=== PATIENT | female | born 1960 | race Asian ===

== ENCOUNTER → 2023-05-14 13:48 | Outpatient (REF) | payer BC, SELFPAY | LOC: HWRAD 13:48 | PROVIDERS: ATTENDING PHYSICIAN Internal Medicine Nephrology; FAMILY PHYSICIAN Family Medicine | DX: R79.89 Other specified abnormal findings of blood chemistry (principal); L93.0 Discoid lupus erythematosus; M34.9 Systemic sclerosis, unspecified | CPT/HCPCS: 76770 ==

== ENCOUNTER → 2023-10-30 14:35 | Outpatient (REF) | payer BC, SELFPAY | LOC: RCS 14:35 | PROVIDERS: ATTENDING PHYSICIAN Internal Medicine Cardiovascular Disease; FAMILY PHYSICIAN Family Medicine | DX: I27.20 Pulmonary hypertension, unspecified (principal); I48.0 Paroxysmal atrial fibrillation; I47.20 Ventricular tachycardia, unspecified | CPT/HCPCS: 93017; 93306 ==

== ENCOUNTER → 2024-05-05 14:11 | Outpatient (REF) | payer BC, SELFPAY | LOC: RCS 14:11 | PROVIDERS: ATTENDING PHYSICIAN Internal Medicine Cardiovascular Disease | DX: R94.39 Abnormal result of other cardiovascular function study (principal); R00.2 Palpitations | CPT/HCPCS: 93017; 93350 ==

== ENCOUNTER 2024-12-23 11:45 | Day surgery (SDC) | payer BC, SELFPAY ==
[2024-12-07 11:23] VITALS: BMI 20.2
[2024-12-07 11:41] LABS: Hematocrit 31.7 % (37.0-47.0); Hemoglobin 10.4 g/dL (12.0-16.0); Mean Corp Hgb Conc. 32.8 g/dL (33.0-37.0); Mean Corpuscular Volume 93.0 fL (81.0-99.0); Nucleated Red Blood Cells % 0 %; Platelet Count 257 10^3/uL (130-400); Red Cell Dist. Width 12.8 % (11.5-14.5)
[2024-12-07 11:52] LABS: INR 1.19; PT 15.4 Sec (11.4-14.6)
[2024-12-07 12:14] LABS: ALT (SGPT) 21 U/L (0-35); AST (SGOT) 24 U/L (14-36); Albumin 4.3 g/dl (3.5-5.0); Alkaline Phosphatase 56 U/L (38-126); Blood Urea Nitrogen 30 mg/dl (7-17); Calcium 9.3 mg/dl (8.4-10.2); Carbon Dioxide 25 mmol/L (22-30); Chloride 108 mmol/L (98-107); Estimated Creatinine Clearance 35 ml/min; Glucose 97 mg/dl (70-99); Magnesium 1.3 mg/dl (1.6-2.3); Potassium 4.1 mmol/L (3.5-5.1); Sodium 141 mmol/L (135-145); Total Protein 7.8 g/dl (6.3-8.2); eGFR 42.01
[2024-12-23] VITALS (24 sets, daily range): BP systolic 120–156; BP diastolic 65–91
--- NOTE | 2024-12-23 11:46 | ITS.CL.ABL ---
Fermentation Scientist - Ablation
Ablation
Procedure Report:
ELECTROPHYSIOLOGIC STUDY AND POSSIBLE ABLATION
DATE: December 23, 2024
Primary Care Provider: Dr. Cole Mckeon
Primary television installer helper: Dr Jami Phelps
INDICATION:
Symptomatic Atrial Fibrillation.
Paroxysmal
HISTORY: See H and P.
Symptomatic AF, poorly controlled with attempted medical therapy
HAS-BLED:0
CHADSVASc: 0
PRESENTING RHYTHM: SR
HISTORY: See H and P.
Symptomatic AF, poorly controlled with attempted medical therapy.
PVI in October 2022 using cryo balloon ablation.
She has recurred with symptomatic atrial fibrillation and presents today for mapping and ablation.
She had pulmonary vein isolation 2022. She has been having palpitations and on Apple Watch she is having frequent recurrence of atrial fibrillation with symptoms of dizziness lasting 20 minutes to 1 hour. I reviewed her Apple watch today and strips
consistent with atrial fibrillation.
ANTICOAGULATION: Eliquis 5 mg twice daily which was initiated October 20, 2024 for recurrences of atrial fibrillation.
'TIME-OUT': called and confirmed.
SEDATION/ANESTHESIA: provided via the anesthesia department using general anesthesia.
PROCEDURE:
Ultrasound Guidance with real-time visualization of needle insertion and vessel patency performed by me for femoral venous Vascular Access.
Under real-time US guidance, the needle was advanced with negative pressure into the vein. The needle was seen entering the vessel lumen with a good return of dark red flow, the syringe was removed, non-pulsatile, dark red blood low was noted and
the wire was passed without difficulty, then the needle was removed. US confirmed the wire was in the vein, not going into an artery,
Images were taken and saved for the patient's permanent record. Imaging findings typical femoral venous anatomy. Direct visualization of needle puncture into the femoral vein was observed and recorded.
A decapolar CS catheter was placed within the CS for mapping and pacing.
The intracardiac ultrasound catheter was positioned in the RA for continuous intracardiac ultrasound imaging.
Heparin bolus and infusion to target ACT at 300 -350 seconds was administered. Transseptal puncture was performed. This entailed advancing a sheath with dilator into the superior vena cava and withdrawing both (monitoring intracardiac ultrasound,
fluoroscopy and tip pressure) with the tip oriented toward the atrial septum. The fossa ovalis was engaged (indicated by sudden displacement of the sheath tip as well as tenting of the fossa seen on intracardiac ultrasound).
Transseptal puncture was performed. Left atrial catheter position was confirmed by echocardiographic imaging, pressure monitoring (LA mean pressure 1mm Hg) and fluoroscopy. The sheath was advanced over the dilator and positioned in the left atrium.
The Sphere 9 multipolar mapping/ablation Sphere-9 catheter was positioned through the transseptal sheath for high density mapping.
Geometry and voltage mapping was performed using the Ch[employer] mapping system for three-dimensional electroanatomical mapping.
Catheter positioning was guided and confirmed using both I.C.E. and fluoroscopy.
High density electroanatomical three-dimensional mapping demonstrated four PVs: LSPV, LIPV, RSPV, RIPV.
Ablation strategy included PVI as well as mapping for extra PV contributors to atrial fibrillation which would also be targeted if present.
Mapping demonstrates reconnection of the left inferior pulmonary vein towards its inferior septal quadrant.
Ablation utilizing PFA via the sphere 9 catheter isolated the left inferior pulmonary vein
After accomplishing pulmonary venous isolation, mapping identified additional areas likely to be extra PV contributors to atrial fibrillation. These areas demonstrated patchy low voltage as well as complex fractionated electrograms. These areas can
be sites for the formation of rotors which can drive and maintain atrial fibrillation. These areas are known to be significant contributors to initiation and perpetuation of atrial fibrillation.
Additional energy applications/additional ablation sets targeted extra PV contributors to atrial fibrillation.
Targets for additional PFA ablation included:
LA posterior wall targeted with pulsed electric field energy isolating the posterior wall of the left atrium
After ablation of the posterior wall, additional targets were addressed:
LA inferior floor
These areas were ablated using pulsed electric field energy eliminating the extra PV contributors to atrial fibrillation.
Post ablation mapping finds entrance and exit block at each of the pulmonary veins, the LA posterior wall and at the additional line at inferior/floor of the LA rendering the sites no longer able to contribute to atrial fibrillation.
Programmed electrostimulation including burst atrial pacing as well the delivery of decremental extrastimuli down to atrial effective refractory period and no sustained arrhythmias could be induced.
I.C.E. :
Pre-Ablation Post-Ablation
LVEF: 55 % 55 %
WMA: none none
Pericardial effusion: trace post trace post
LA Pressure (mmHg) 1 2
COMPLICATIONS:
none
SUMMARY:
- Mapping and ablation to isolate the PVs resulting in electrical isolation of the pulmonary veins
- Additional AF ablation sets X 2 after PVI (LA posterior wall, Inf/floor of the LA posterior wall) resulting in elimination of the targeted extra PV contributors to atrial fibrillation (Post wall, Inf LA floor)
- 3-D Electroanatomical Mapping
- Intracardiac Ultrasound
- Ultrasound guidance for vascular access
Post ablation, I discussed today's findings and results with the patient's , Pranav.
RECOMMENDATIONS:
- Observe in monitored bed.
- Maintain oral anticoagulation, apixaban 5 mg twice daily.
CHADSVASc = 0
Stop anticoagulation 2 months from today and at that time initiate aspirin 81 mg daily
- Continue cardiovascular care with Dr Jami Phelps which is scheduled for April 05, 2025
Copy to:
Primary Care Provider: Dr. Cole Mckeon
Primary television installer helper: Dr Jami Phelps
[2024-12-23 12:42] LABS: Magnesium 1.7 mg/dl (1.6-2.3)
[2024-12-23 16:03] LABS: ACT-LR - POC 316 Seconds (116-155)
[2024-12-23] MEDS: ULTRAM 50 MG PO (17:28)
[2024-12-23] MEDS: TYLENOL 650 MG PO (18:22)
[2024-12-23] MEDS: LIPITOR 10 MG PO (18:23)
--- NOTE | 2024-12-23 18:50 | PTCARENOTE ---
1750-Received pt from laborer electroplating.Oriented x3.+JANG.Speech is appropriate.Flat bedrest/precautions maintained.c/o headache.Requested and received Tylenol.SR noted.Lungs CTA.POX 99% on RA.Eating dinner now.Requested and received female PureWick to void
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
her spouse at bedside.
--- NOTE | 2024-12-23 20:30 | PTCARENOTE ---
R groin sutures removed at 2029 by IVU RN, new dressing applied. neurovascular checks continue. call hernandez in reach.
[2024-12-23] MEDS: COREG 12.5 MG PO (22:23)
[2024-12-23] MEDS: ELIQUIS 5 MG PO (22:23)
[2024-12-23] MEDS: VIBRAMYCIN 100 MG PO (22:24)
[2024-12-24] VITALS (9 sets, daily range): BP systolic 114–176; BP diastolic 70–97; BMI 20.1
[2024-12-24] MEDS: ULTRAM 50 MG PO (03:12)
[2024-12-24 03:32] LABS: Hematocrit 29.4 % (37.0-47.0); Hemoglobin 10.1 g/dL (12.0-16.0); Mean Corp Hgb Conc. 34.4 g/dL (33.0-37.0); Mean Corpuscular Volume 91.9 fL (81.0-99.0); Platelet Count 244 10^3/uL (130-400); Red Cell Dist. Width 13.0 % (11.5-14.5)
[2024-12-24 04:04] LABS: Blood Urea Nitrogen 20 mg/dl (7-17); Calcium 9.1 mg/dl (8.4-10.2); Carbon Dioxide 25 mmol/L (22-30); Chloride 105 mmol/L (98-107); Estimated Creatinine Clearance 49 ml/min; Glucose 142 mg/dl (70-99); Magnesium 1.6 mg/dl (1.6-2.3); Potassium 4.2 mmol/L (3.5-5.1); Sodium 137 mmol/L (135-145); eGFR > 60.00
--- NOTE | 2024-12-24 08:00 | PTCARENOTE ---
Addendum entered by Candace Justice RN 12/24/24 09:32:
Right base w/ fine crackles noted. Per pt, this is chronic.
Original Note:
Rec'd pt A&Ox3. Pleasant. Mild headache but overall no complaints. S1 S2 reg w/ NSR on monitor. +PP. No edema. On R/A...sats 100%. Lungs clear. Abdomen soft and round...+BS. Voids in bathroom. Skin intact except intact dressing on right
groin. 20P LAC noted. VS documented. Call hernandez within reach. Breakfast ordered. Safe environment confirmed.
[2024-12-24] MEDS: PROTONIX 40 MG PO (08:05)
[2024-12-24] MEDS: TYLENOL 650 MG PO (08:05)
[2024-12-24] MEDS: PROCARDIA XL (EXTENDED RELEASE) 60 MG PO (08:06)
[2024-12-24] MEDS: ELIQUIS 5 MG PO (08:09)
--- NOTE | 2024-12-24 08:15 | PTCARENOTE ---
Pt vomiting in bathroom. Pt feels that N/V and headache are due to skipping procardia XL dose yesterday. MD aware. Will provide tylenol and zofran. Will monitor.
[2024-12-24] MEDS: ZOFRAN 4 MG IV (08:45)
[2024-12-24] MEDS: COREG 12.5 MG PO (09:27)
[2024-12-24] MEDS: VIBRAMYCIN 100 MG PO (09:27)
[2024-12-24] MEDS: MAGNESIUM OXIDE 200 MG PO (09:27)
--- NOTE | 2024-12-24 09:30 | PTCARENOTE ---
Pt free of nausea...no more vomiting since am incident. Headache free. Lola Knapp (cardiology) at bedside to see patient. Probable d/c home today.
--- NOTE | 2024-12-24 10:45 | PTCARENOTE ---
Pt to discharge to home. Discharge instructions reviewed and signed...copy provided. INT and cardiac monitoring removed. All belongings collected in room. Pt to discharge via wheelchair...pt's to drive home.
--- NOTE | 2024-12-24 10:50 | W.PN.CARDCBS ---
Today's Communication / Plan
-
post ablation stable for d/c home
Impression / Plan
-
Primary Care Provider: Dr. Cole Mckeon
Primary warp hand: Dr Jami Phelps
Impression:
Symptomatic Paroxysmal Atrial Fibrillation.
prior PVI cryo 2022
s/p redo PVI/PW ablation 12/23/24
Hypomagnesium
Hypertension.
Hyperlipidemia.
Raynaud's.
Mixed connective tissue disorder.
Scleroderma.
Interstitial fibrosis.
Gastroesophageal reflux disease.
Iron deficiency anemia.
Obstructive sleep apnea.
Thyroid nodule.
Plan:
post ablation had some nausea this am improved with zofran
groin stable
tele SR
OAC Eliquis
Mg 1.6, improved with supplementation, continue with goal >2
continue carvedilol and PRN metoprolol
Activity restrictions reviewed
f/u Dr. Farrell in 3 mo
home today
Progress Note - News Analyst
Subjective
Date of Service: December 24, 2024
denies cp, sob, mild nausea related to w/d from nifedipine (missed dose yesterday)
Objective
Labs:
12/24/24 03:15
12/24/24 03:15
Labs
Hgb 10.1 g/dL (12.0-16.0) L 12/24/24 03:15
Hct 29.4 % (37.0-47.0) L 12/24/24 03:15
Plt Count 244 10^3/uL (130-400) 12/24/24 03:15
PT 15.4 Sec (11.4-14.6) H 12/07/24 11:17
INR 1.19 12/07/24 11:17
Sodium 137 mmol/L (135-145) 12/24/24 03:15
Potassium 4.2 mmol/L (3.5-5.1) 12/24/24 03:15
BUN 20 mg/dl (7-17) H 12/24/24 03:15
Creatinine 1.0 mg/dL (0.6-1.0) 12/24/24 03:15
Glucose 142 mg/dl (70-99) H 12/24/24 03:15
Vital Signs and I&O:
Vital Signs
Temp Pulse Resp BP Pulse Ox
98.0 F 79 18 114/70 100
12/24/24 10:30 12/24/24 10:09 12/24/24 10:09 12/24/24 10:09 12/24/24 08:00
Vital Signs
Temp Pulse Resp BP Pulse Ox
98.0 F 79 18 114/70 100
12/24/24 10:30 12/24/24 10:09 12/24/24 10:09 12/24/24 10:09 12/24/24 08:00
Intake & Output
12/22/24 12/23/24 12/24/24 12/25/24
06:59 06:59 06:59 06:59
Intake Total 2380 / 2380 360 / 360
Output Total 400 / 400
Balance 1979 / 1979 360 / 360
Physical Exam
Physical Exam
NAD, AOX3
S1, S2, RRR, I/ LUIZ at apex
bibasilar crackles (fibrosis), no wheeze, no rhonchi
SNTND bsx4
R fem site c/d/i no HT, soft
--- NOTE | 2024-12-24 12:43 | W.PN.CARDCBS ---
Today's Communication / Plan
-
Stable for discharge to home today
Impression / Plan
-
Primary Care Provider: Dr. Cole Mckeon
Primary side door man: Dr Jami Phelps
Impression:
Symptomatic Paroxysmal Atrial Fibrillation.
prior PVI cryo 2022
s/p redo PVI/PW ablation 12/23/24
Hypomagnesium
Hypertension.
Hyperlipidemia.
Raynaud's.
Mixed connective tissue disorder.
Scleroderma.
Interstitial fibrosis.
Gastroesophageal reflux disease.
Iron deficiency anemia.
Obstructive sleep apnea.
Thyroid nodule.
Plan:
She has remained in sinus rhythm after her ablation.
She had some nausea post ablation and was treated with Zofran, nausea now resolved. This morning she is eating breakfast and tells me she feels great.
Hypomagnesemia repleted with supplementation.
We reviewed her discharge instructions including activity restrictions.
All of her questions have been answered.
Maintain Eliquis anticoagulation
Stable for discharge to home today
Progress Note - Physics And Astronomy Professor
Subjective
Date of Service: December 24, 2024
She is eating breakfast smiling tell me she feels great. No chest pain shortness of breath palpitations or dizziness
Objective
Labs:
12/24/24 03:15
12/24/24 03:15
Labs
Hgb 10.1 g/dL (12.0-16.0) L 12/24/24 03:15
Hct 29.4 % (37.0-47.0) L 12/24/24 03:15
Plt Count 244 10^3/uL (130-400) 12/24/24 03:15
PT 15.4 Sec (11.4-14.6) H 12/07/24 11:17
INR 1.19 12/07/24 11:17
Sodium 137 mmol/L (135-145) 12/24/24 03:15
Potassium 4.2 mmol/L (3.5-5.1) 12/24/24 03:15
BUN 20 mg/dl (7-17) H 12/24/24 03:15
Creatinine 1.0 mg/dL (0.6-1.0) 12/24/24 03:15
Glucose 142 mg/dl (70-99) H 12/24/24 03:15
Vital Signs and I&O:
Vital Signs
Temp Pulse Resp BP Pulse Ox
98.0 F 79 18 114/70 100
12/24/24 10:30 12/24/24 10:09 12/24/24 10:09 12/24/24 10:09 12/24/24 08:00
Vital Signs
Temp Pulse Resp BP Pulse Ox
98.0 F 79 18 114/70 100
12/24/24 10:30 12/24/24 10:09 12/24/24 10:09 12/24/24 10:09 12/24/24 08:00
Intake & Output
12/22/24 12/23/24 12/24/24 12/25/24
06:59 06:59 06:59 06:59
Intake Total 2380 / 2380 360 / 360
Output Total 400 / 400
Balance 1979 / 1979 360 / 360
Physical Exam
Physical Exam
Well-appearing no acute distress
Regular rate and rhythm with normal S1 and S2, no S3 no S4 is a grade 1/6 apical holosystolic murmur no rubs. PMI is normally placed
Abdomen soft nontender nondistended with normoactive bowel sound
Extremities no clubbing cyanosis or edema
Neurologic exam is nonfocal
--- NOTE | 2024-12-24 13:16 | W.DS.TRANS ---
DC Summary - Senior Technical Support Engineer
-
Discharge Instructions:
Discharge Diagnosis/Procedures Atrial fibrillation post ablation
Diet Low Cholesterol
Driving Restrictions No driving for 24 hours
Instructions:
Stand-Alone Forms: DC Instructions- Cath/EP Lab
Changes to Home Medications: No
Discharge Medications:
DC Medications w/original date entered in [employer]
nifedipine 60 mg tablet,extended release 24 hr 60 mg PO DAILY 04/21/18
apixaban 5 mg tablet (Eliquis) 5 mg PO BID #60 tabs 10/23/22
ascorbic acid (vitamin C) 1,000 mg tablet (Vitamin C) 1,000 mg PO DAILY 10/23/22
atorvastatin 10 mg tablet 10 mg PO QPM 10/23/22
cholecalciferol (vitamin D3) 50 mcg (2,000 unit) tablet (Vitamin D3) 50 mcg PO DAILY 10/23/22
ferrous sulfate 324 mg (65 mg iron) tablet,delayed release 324 mg PO Q48H 10/23/22
icosapent ethyl 1 gram capsule (Vascepa) 2 g PO BID 10/23/22
tadalafil (pulm. hypertension) 20 mg tablet (pulmonary hypertension) 10 mg PO .WINTER ONLY 10/23/22
omeprazole 20 mg capsule,delayed release 20 mg PO DAILY 12/03/24
Bacillus coagulans 250 million cell chewable tablet (Probiotic (B. coagulans)) 1,000 mmu cells PO QPM 12/22/24
carvedilol 12.5 mg tablet 12.5 mg PO BID 12/22/24
metoprolol tartrate 25 mg tablet 12.5 mg PO BID PRN afib 12/22/24
cyanocobalamin (vitamin B-12) 1,000 mcg capsule 1,000 mcg DAILY 12/23/24
doxycycline hyclate 100 mg capsule 100 mg PO BID scleroderma 12/23/24
magnesium oxide 200 mg PO DAILY 12/23/24
tramadol 50 mg tablet 50 mg PO HSPRN PRN pain 12/23/24
venlafaxine 37.5 mg tablet 0 mg PO Q48H 12/23/24
Home Medication Changes
Pending Results: No
--- NOTE | 2024-12-24 16:04 | CM ---
CM reviewed chart, patient admitted for SDS- d/c home no needs.
Plan; home no needs
== END 2024-12-24 10:58 | disposition home or self-care (01) ==
LOC: CATH 11:45
PROVIDERS: Nurse Practitioner Adult Health; ATTENDING PHYSICIAN Internal Medicine Cardiovascular Disease; FAMILY PHYSICIAN Family Medicine; OTHER PHYSICIAN Internal Medicine Cardiovascular Disease
DX: I48.0 Paroxysmal atrial fibrillation (principal); E83.42 Hypomagnesemia; I10 Essential (primary) hypertension; E78.5 Hyperlipidemia, unspecified; I73.00 Raynaud's syndrome without gangrene; M34.9 Systemic sclerosis, unspecified; K21.9 Gastro-esophageal reflux disease without esophagitis; D50.9 Iron deficiency anemia, unspecified; E04.1 Nontoxic single thyroid nodule; G47.33 Obstructive sleep apnea (adult) (pediatric); Z79.01 Long term (current) use of anticoagulants; Z79.899 Other long term (current) drug therapy; Z88.1 Allergy status to other antibiotic agents; Z88.2 Allergy status to sulfonamides; Z88.3 Allergy status to other anti-infective agents; Z91.041 Radiographic dye allergy status
CPT/HCPCS: C1733; C1894; C1769; C1766; C1730; C1892; C1759; 36415; 80048; 80053; 83735; 85025; 85027; 85347; 85610; 86850; 86900; 86901; 93005; 93656; 93657